=== PATIENT | female | born 1940 | race Caucasian/White ===

== ENCOUNTER → 2016-08-12 | Outpatient (CLI) | payer MEDICARE, BC ==
[2016-08-12 07:32] LABS: ABSOLUTE BASOPHILS # (AUTO) 0.1 10^3/uL (0.0-0.2); ABSOLUTE EOSINOPHILS # (AUTO) 0.2 10^3/uL (0.0-0.6); ABSOLUTE LYMPHOCYTES (AUTO) 1.7 10^3/uL (0.5-4.7); ABSOLUTE MONOCYTES (AUTO) 0.4 10^3/uL (0.1-1.4); ABSOLUTE NEUT (AUTO) 3.4 10^3/uL (1.7-8.2); BASOPHILS % (AUTO) 1.1 % (0-2); EOSINOPHILS % (AUTO) 4.1 % (0-6); HEMATOCRIT 40.2 % (36.0-47.0); HEMOGLOBIN 13.5 g/dL (12.0-15.5); HGB HCT DIFFERENCE 0.3; LYMPHOCYTES % (AUTO) 28.9 % (13-45); MEAN CORPUSCULAR HGB CONC 33.7 g/dL (32.0-36.0); MEAN CORPUSCULAR VOLUME 86 fl (80-97); MONOCYTES % (AUTO) 6.3 % (3-13); RED BLOOD COUNT 4.67 10^6/uL (3.72-5.28); RED CELL DISTRIBUTION WIDTH 14.3 % (11.5-14.0); SEGMENTED NEUTROPHILS % (AUTO) 59.6 % (42-78); WHITE BLOOD COUNT 5.7 10^3/uL (4.0-10.5)
[2016-08-12 07:52] LABS: ALANINE AMINOTRANSFERASE 27 U/L (9-52); ALBUMIN 4.4 g/dL (3.5-5.0); ALKALINE PHOSPHATASE 69 U/L (38-126); ANION GAP 12 (5-19); ASPARTATE AMINO TRANSFERASE 21 U/L (14-36); BILIRUBIN,TOTAL 0.7 mg/dL (0.2-1.3); BLOOD UREA NITROGEN 18 mg/dL (7-20); CALCIUM 10.4 mg/dL (8.4-10.2); CARBON DIOXIDE 27 mmol/L (22-30); CHLORIDE 104 mmol/L (98-107); CHOLESTEROL 140.25 mg/dL (0-200); CREATININE RESULT 1.23 mg/dL (0.52-1.25); Direct HDL 51 mg/dL (>40); GLUCOSE 128 mg/dL (75-110); POTASSIUM 4.8 mmol/L (3.6-5.0); SODIUM 143.4 mmol/L (137-145); TOTAL PROTEIN 7.3 g/dL (6.3-8.2); TRIGLYCERIDES 254 mg/dL (<150)
[2016-08-12 08:04] LABS: DIRECT LDL 51 mg/dL (<100)
[2016-08-12 08:09] LABS: VLDL CHOLESTEROL 50.8 mg/dL (10-31)
== END ==
LOC: LAB 07:09
PROVIDERS: ATTEND Internal Medicine
DX: N20.0 Calculus of kidney (principal); R31.9 Hematuria, unspecified; E11.9 Type 2 diabetes mellitus without complications; I25.10 Atherosclerotic heart disease of native coronary artery without angina pectoris; I10 Essential (primary) hypertension; R53.83 Other fatigue; E78.5 Hyperlipidemia, unspecified
CPT/HCPCS: 36415; 74176; 80053; 80061; 83036; 84443; 85025

== ENCOUNTER → 2016-08-28 | Outpatient (CLI) | payer MEDICARE, BC | LOC: RAD 08:40 | PROVIDERS: ATTEND Urology | DX: R31.0 Gross hematuria (principal) | CPT/HCPCS: 74178 ==

== ENCOUNTER 2016-12-26 05:11 | Day surgery (SDC) | payer MEDICARE, BC ==
[2016-12-24 12:09] LABS: HEMATOCRIT 39.5 % (36.0-47.0); HGB HCT DIFFERENCE -0.5; MEAN CORPUSCULAR HEMOGLOBIN 28.8 pg (27.0-33.4); MEAN CORPUSCULAR VOLUME 87 fl (80-97); RED BLOOD COUNT 4.52 10^6/uL (3.72-5.28); RED CELL DISTRIBUTION WIDTH 14.7 % (11.5-14.0); WHITE BLOOD COUNT 7.2 10^3/uL (4.0-10.5)
[2016-12-24 12:28] LABS: ANION GAP 12 (5-19); BLOOD UREA NITROGEN 22 mg/dL (7-20); CALCIUM 10.2 mg/dL (8.4-10.2); CARBON DIOXIDE 26 mmol/L (22-30); CHLORIDE 103 mmol/L (98-107); CREATININE RESULT 1.12 mg/dL (0.52-1.25); GLUCOSE 161 mg/dL (75-110); POTASSIUM 4.7 mmol/L (3.6-5.0); SODIUM 140.7 mmol/L (137-145)
[2016-12-24 12:51] LABS: APPEARANCE,URINE SLIGHTLY-CLOUDY; BILIRUBIN,URINE NEGATIVE (NEGATIVE); GLUCOSE, URINE NEGATIVE (NEGATIVE); KETONES,URINE NEGATIVE (NEGATIVE); LEUKOCYTE ESTERASE,URINE TRACE (NEGATIVE); NITRITE,URINE NEGATIVE (NEGATIVE); PROTEIN,URINE 30 mg/dL (NEGATIVE); URINE SPECIFIC GRAVITY 1.018; UROBILINOGEN,URINE NEGATIVE mg/dL (<2.0)
--- NOTE | 2016-12-24 13:21 | RADIOLOGY REPORT (SQ) ---
EXAM DESCRIPTION: CHEST PA/LATERAL COMPLETED DATE/TIME: 12/24/2016 12:07 pm REASON FOR STUDY: PRE OP COMPARISON: 03/28/2015 EXAM PARAMETERS: NUMBER OF VIEWS: two views TECHNIQUE: Digital Frontal and Lateral radiographic views of the chest acquired. RADIATION DOSE: NA LIMITATIONS: none FINDINGS: LUNGS AND PLEURA: No opacities, masses or pneumothorax. No pleural effusion. MEDIASTINUM AND HILAR STRUCTURES: No masses or contour abnormalities. HEART AND VASCULAR STRUCTURES: Heart normal size. No evidence for failure. BONES: Bridging osteophytes are present in the thoracic spine. HARDWARE: None in the chest. OTHER: No other significant finding. IMPRESSION: Thoracic spondylosis with no acute cardiopulmonary disease. TECHNICAL DOCUMENTATION: JOB ID: [id number] [employer]- All Rights Reserved
--- NOTE | 2016-12-24 17:04 | EKG REPORT ---
SEVERITY:- ABNORMAL ECG - SINUS RHYTHM NONSPECIFIC T ABNORMALITIES, LATERAL LEADS : Confirmed by: Jacki Vann MD 24-Dec-2016 17:03:25
[~2016-12-26 05:11] MED LIST: CEFAZOLIN 1 GM/D5W RTU 1 GM/50 ML RTUPB IV PRN; LACTATED RINGERS 1000 ML IV PRN; LIDOCAINE 0.5% INJ-PF (5 MG/ML) 50 ML SDV SUBCUT PRN
[2016-12-26] MEDS ORDERED: MIDAZOLAM 2 MG/2 ML INJ ONE (07:00)
[2016-12-26] MEDS ORDERED: FENTANYL CITRATE INJ/PF 100 MCG/2 ML AMPUL ONE (07:00)
[2016-12-26] MEDS ORDERED: PROPOFOL INJ 200 MG/20 ML VIAL IV ONE (07:01)
[2016-12-26] MEDS ORDERED: LIDOCAINE 2% INJ-PF (100 MG/5 ML) SYRINGE ONE (07:02)
[2016-12-26] MEDS ORDERED: LIDOCAINE 1% INJ-PF (10 MG/ML) 30 ML SDV ONE (07:29)
[2016-12-26] MEDS ORDERED: PROMETHAZINE HCL INJ 25 MG/1 ML VIAL IV PRN (07:48)
[2016-12-26] MEDS ORDERED: DIPHENHYDRAMINE HCL 50 MG/ML VIAL IV PRN (07:48)
[2016-12-26] MEDS ORDERED: FENTANYL CITRATE INJ/PF 100 MCG/2 ML AMPUL IV PRN ×2 (07:48)
[2016-12-26] MEDS ORDERED: MEPERIDINE HCL/PF INJ 25 MG/1 ML DISP.SYRIN IV PRN (07:48)
--- NOTE | 2016-12-26 08:13 | OPERATIVE REPORT E ---
Operative Report NAME: FRANCY HOLGUIN : 1940 AGE: 76Y DATE OF SURGERY: ROOM: PREOPERATIVE DIAGNOSIS: Post menopausal bleeding. POSTOPERATIVE DIAGNOSES: 1. Post menopausal bleeding. 2. Endometrial polyp. PROCEDURE: Hysteroscopic resection endometrial polyp via operative hysteroscopy. SURGEON: RENEA VERDUGO M.D. COMPLICATIONS: None. ANESTHESIA: LMA and local. FINDINGS: Approximately a 1.5 cm endometrial polyp with a small stalk present. It was removed in toto. INDICATIONS FOR PROCEDURE: The patient had postmenopausal bleeding unresponsive to the usual assessment as an outpatient. It was elected to proceed to operative hysteroscopy for proper assessment of the cervix and uterus. The usual risks of bleeding and infection, anesthesia, damage to organs and tissues had been discussed with the patient and understood. PROCEDURE: The patient was taken to the operating room and placed in the modified lithotomy position under adequate anesthesia. After adequate anesthesia ascertained, prepped and draped in the usual manner for an operative hysteroscopy. Paracervical block was placed without difficulty after a surgical time-out was performed. The bladder was left undrained. EUA performed. No adnexal masses were appreciated. The cervix was dilated to admit an operative hysteroscope after infiltration of the area with approximately 8 mL of 1% plain lidocaine. An endometrial polyp was encountered, MyoSure was deployed, and the polyp was removed in toto under direct visualization. At complete of procedure bleeding was nil. The patient was awakened and taken to the recovery room in stable condition. DICTATING PHYSICIAN: RENEA VERDUGO M.D. [id number] Y#: [id number] ID: [id number] JOB#: [id number] ACCT: [id number] cc:RENEA VERDUGO M.D. >
[2016-12-26] MEDS ORDERED: RINGERS SOLUTION,LACTATED 1,000 ML IV PRN (08:30)
[2016-12-26] MEDS ORDERED: OXYCODONE-ACETAMINOPHEN 5-325 MG TABLET PO PRN (09:00)
[2016-12-26] MEDS ORDERED: MORPHINE INJ 4 MG DOSE (EDIT ROUTE) INJ PRN (09:00)
[2016-12-26 09:54] VITALS: BP 173/63
[2016-12-26] MEDS ORDERED: IBUPROFEN 800 MG TABLET PO SCH (10:00)
== END 2016-12-26 09:55 | disposition home or self-care (01) ==
LOC: OROUT 05:11
PROVIDERS: ATTEND Specialist
PROC: 0UB98ZX Excision of Uterus, Via Natural or Artificial Opening Endoscopic, Diagnostic (ICD-10-PCS; principal; 2016-12-26 07:15)
DX: C54.1 Malignant neoplasm of endometrium (principal); N95.0 Postmenopausal bleeding; E11.9 Type 2 diabetes mellitus without complications; I10 Essential (primary) hypertension; E78.00 Pure hypercholesterolemia, unspecified; R06.00 Dyspnea, unspecified; Z86.73 Personal history of transient ischemic attack (TIA), and cerebral infarction without residual deficits; Z79.899 Other long term (current) drug therapy; Z79.4 Long term (current) use of insulin; Z79.84 Long term (current) use of oral hypoglycemic drugs; Z79.82 Long term (current) use of aspirin
CPT/HCPCS: 93005; 86900; 86901; 36415; 86850; 82962; 85027; 80048; 81001; 88305 ×2; 71020; 93010; 58558; J2250; J0690; J3010; J3490; J2001; J2704; 952

== ENCOUNTER 2017-10-06 09:31 | Observation (INO) | payer MEDICARE, BC ==
[2017-10-06] MEDS ORDERED: ASPIRIN 81 MG TABLET, CHEWABLE PO ONE (09:36)
--- NOTE | 2017-10-06 09:46 | ER Document Report ---
ED General - General Stated Complaint: GENERALIZED WEAKNESS Time Seen by Provider: 10/06/17 09:36 Mode of Arrival: Medic Information source: Patient, Relative, Law Enforcement Notes: 76-year-old female history of dementia presents from home with concerns for generalized weakness and chills. Patient denies any fevers denies any pain anywhere it is noted patient had fall but denies any pain from the fall TRAVEL OUTSIDE OF THE [place] IN LAST 30 DAYS: No - HPI Onset: Just prior to arrival Onset/Duration: Sudden Quality of pain: No pain Severity: Mild Pain Level: Denies Associated symptoms: Chills Exacerbated by: Denies Relieved by: Denies Similar symptoms previously: No Recently seen / treated by doctor: No - Related Data Allergies/Adverse Reactions: codeine [Codeine] Allergy (Verified 09/17/14 19:49) Past Medical History - Social History Smoking Status: Never Smoker Cigarette use (# per day): No Chew tobacco use (# tins/day): No Smoking Education Provided: No Family History: Reviewed & Not Pertinent - Past Medical History Cardiac Medical History: Reports: Hx Heart Attack - 2014, Hx Hypercholesterolemia, Hx Hypertension, Hx Peripheral Vascular Disease Denies: Hx Coronary Artery Disease Pulmonary Medical History: Denies: Hx Asthma, Hx Bronchitis, Hx COPD, Hx Pneumonia, Hx Tuberculosis Neurological Medical History: Denies: Hx Cerebrovascular Accident, Hx Seizures Endocrine Medical History: Reports: Hx Diabetes Mellitus Type 2 GI Medical History: Denies: Hx Hepatitis, Hx Hiatal Hernia, Hx Ulcer Musculoskeltal Medical History: Denies Hx Arthritis Infectious Medical History: Denies: Hx Hepatitis Past Surgical History: Reports: Hx Cardiac Surgery - stents. Denies: Hx Mastectomy, Hx Open Heart Surgery, Hx Pacemaker - Immunizations Hx Diphtheria, Pertussis, Tetanus Vaccination: Yes Hx Pneumococcal Vaccination: 04/05/16 Review of Systems - Review of Systems Notes: REVIEW OF SYSTEMS: CONSTITUTIONAL : Admits to chills EENT: Denies eye, ear, throat, or mouth pain or symptoms. Denies nasal or sinus congestion or discharge. Denies throat, tongue, or mouth swelling or difficulty swallowing. CARDIOVASCULAR: Denies chest pain. Denies palpitations or racing or irregular heart beat. Denies ankle edema. RESPIRATORY: Denies cough, cold, or chest congestion. Denies shortness of breath, difficulty breathing, or wheezing. GASTROINTESTINAL: Denies abdominal pain or distention. Denies nausea, vomiting , or diarrhea. Denies blood in vomitus, stools, or per rectum. Denies black, tarry stools. Denies constipation. GENITOURINARY: Denies difficulty urinating, painful urination, burning, frequency, blood in urine, or discharge. FEMALE GENITOURINARY: Denies vaginal bleeding, heavy or abnormal periods, irregular periods. Denies vaginal discharge or odor. MUSCULOSKELETAL: Denies back or neck pain or stiffness. Denies joint pain or swelling. SKIN: Denies rash, lesions or sores. HEMATOLOGIC : Denies easy bruising or bleeding. LYMPHATIC: Denies swollen, enlarged glands. NEUROLOGICAL: Denies confusion or altered mental status. Denies passing out or loss of consciousness. Denies dizziness or lightheadedness. Denies headache. Denies weakness or paralysis or loss of use of either side. Denies problems with gait or speech. Denies sensory loss, numbness, or tingling. Denies seizures. PSYCHIATRIC: Denies anxiety or stress. Denies depression, suicidal ideation, or homicidal ideation. ALL OTHER SYSTEMS REVIEWED AND NEGATIVE. PHYSICAL EXAMINATION: GENERAL: Elderly female tremoring HEAD: Atraumatic, normocephalic. EYES: Pupils equal round and reactive to light, extraocular movements intact, conjunctiva are normal. ENT: Nares patent, oropharynx clear without exudates. Moist mucous membranes. NECK: Normal range of motion, supple without lymphadenopathy LUNGS: Breath sounds clear to auscultation bilaterally and equal. No wheezes rales or rhonchi. HEART: Regular rate and rhythm without murmurs ABDOMEN: Soft, nontender, nondistended abdomen. No guarding, no rebound. No masses appreciated. Female : deferred Musculoskeletal: Normal range of motion, no pitting or edema. No cyanosis. NEUROLOGICAL: Cranial nerves grossly intact. Normal speech, normal gait. Normal sensory, motor exams PSYCH: Normal mood, normal affect. SKIN: Warm, Dry, normal turgor, no rashes or lesions noted. Dictation was performed using [employer] voice recognition software Physical Exam - Vital signs Vitals: Temp Pulse Resp BP Pulse Ox 97.3 F 103 H 28 H 169/81 H 99 10/06/17 09:37 10/06/17 09:37 10/06/17 09:37 10/06/17 09:37 10/06/17 09:37 Course - Re-evaluation Re-evalutation: 10/06/17 09:45 Patient has probable infectious process associated with the chills and generalized weakness that she is having, urinalysis x-ray lab work are pending 10/06/17 13:19 Patient is noted to have elevated lactic acid, she is on metformin, and acute renal insufficiency is noted as well. I do believe patient's symptoms are secondary to dehydration, no obvious infectious process is noted, patient will be admitted to the hospitalist service - Vital Signs Vital signs: Temp Pulse Resp BP Pulse Ox 97.3 F 103 H 16 176/90 H 99 10/06/17 09:37 10/06/17 09:37 10/06/17 12:00 10/06/17 12:00 10/06/17 12:00 - Laboratory Result Diagrams: 10/06/17 10:00 10/06/17 10:00 Laboratory results interpreted by me: 10/06/17 10/06/17 10/06/17 10:00 10:00 10:01 BUN 25 H Creatinine 1.59 H Est GFR ( Amer) 38 L Est GFR (Non-Af Amer) 31 L Glucose 140 H POC Glucose 123 H Lactic Acid 3.5 H Calcium 10.7 H Creatine Kinase 246 H Urine Protein Urine Glucose (UA) Urine Blood 10/06/17 10:15 BUN Creatinine Est GFR ( Amer) Est GFR (Non-Af Amer) Glucose POC Glucose Lactic Acid Calcium Creatine Kinase Urine Protein 100 H Urine Glucose (UA) 150 H Urine Blood SMALL H - Diagnostic Test Radiology reviewed: Image reviewed - no acute abnormality , report given to patient, Reports reviewed - EKG Interpretation by Me EKG shows normal: Sinus rhythm, [place], Intervals, QRS Complexes Discharge - Discharge Clinical Impression: Lactic acid acidosis Acute renal failure (ARF) Qualifiers: Acute renal failure type: unspecified Qualified Code(s): N17.9 - Acute kidney failure, unspecified Condition: Stable Disposition: ADMITTED OBSERVATION Admitting Provider: Hospitalist Unit Admitted: Telemetry
--- NOTE | 2017-10-06 09:58 | RADIOLOGY REPORT (SQ) ---
EXAM DESCRIPTION: CHEST SINGLE VIEW COMPLETED DATE/TIME: 10/06/2017 9:50 am REASON FOR STUDY: weakness COMPARISON: Chest films 12/24/2016, 03/28/2015 EXAM PARAMETERS: NUMBER OF VIEWS: One view. TECHNIQUE: Single frontal radiographic view of the chest acquired. RADIATION DOSE: NA LIMITATIONS: None. FINDINGS: LUNGS AND PLEURA: No opacities, masses or pneumothorax. No pleural effusion. MEDIASTINUM AND HILAR STRUCTURES: No masses. Contour normal. HEART AND VASCULAR STRUCTURES: Heart normal in size. Normal vasculature. BONES: Diffuse thoracic spondylotic change. HARDWARE: None in the chest. OTHER: No other significant finding. IMPRESSION: NO ACUTE RADIOGRAPHIC FINDING IN THE CHEST. TECHNICAL DOCUMENTATION: JOB ID: [id number] [employer]- All Rights Reserved Reading location - IP/workstation name: [email or web address]
[2017-10-06 10:23] LABS: ABSOLUTE BASOPHILS # (AUTO) 0.1 10^3/uL (0.0-0.2); ABSOLUTE EOSINOPHILS # (AUTO) 0.1 10^3/uL (0.0-0.6); ABSOLUTE LYMPHOCYTES (AUTO) 1.9 10^3/uL (0.5-4.7); ABSOLUTE MONOCYTES (AUTO) 0.6 10^3/uL (0.1-1.4); ABSOLUTE NEUT (AUTO) 4.6 10^3/uL (1.7-8.2); BASOPHILS % (AUTO) 0.8 % (0-2); EOSINOPHILS % (AUTO) 1.3 % (0-6); HEMOGLOBIN 13.9 g/dL (12.0-15.5); LYMPHOCYTES % (AUTO) 26.6 % (13-45); MEAN CORPUSCULAR HEMOGLOBIN 29.9 pg (27.0-33.4); MEAN CORPUSCULAR HGB CONC 34.8 g/dL (32.0-36.0); MEAN CORPUSCULAR VOLUME 86 fl (80-97); MONOCYTES % (AUTO) 8.1 % (3-13); PLATELET COUNT 250 10^3/uL (150-450); RED BLOOD COUNT 4.64 10^6/uL (3.72-5.28); RED CELL DISTRIBUTION WIDTH 13.8 % (11.5-14.0); SEGMENTED NEUTROPHILS % (AUTO) 63.2 % (42-78); TOTAL CELLS COUNTED % (AUTO) 100 %; WHITE BLOOD COUNT 7.2 10^3/uL (4.0-10.5)
[2017-10-06 10:34] LABS: APPEARANCE,URINE CLEAR; BILIRUBIN,URINE NEGATIVE (NEGATIVE); COLOR,URINE YELLOW; GLUCOSE, URINE 150 mg/dL (NEGATIVE); KETONES,URINE NEGATIVE (NEGATIVE); LEUKOCYTE ESTERASE,URINE NEGATIVE (NEGATIVE); NITRITE,URINE NEGATIVE (NEGATIVE); PROTEIN,URINE 100 mg/dL (NEGATIVE); URINE SPECIFIC GRAVITY 1.018; UROBILINOGEN,URINE NEGATIVE mg/dL (<2.0)
[2017-10-06 10:46] LABS: ALANINE AMINOTRANSFERASE 20 U/L (9-52); ALBUMIN 4.6 g/dL (3.5-5.0); ALKALINE PHOSPHATASE 81 U/L (38-126); ANION GAP 17 (5-19); ASPARTATE AMINO TRANSFERASE 25 U/L (14-36); BILIRUBIN,DIRECT 0.1 mg/dL (0.0-0.4); BILIRUBIN,TOTAL 0.5 mg/dL (0.2-1.3); BLOOD UREA NITROGEN 25 mg/dL (7-20); CALCIUM 10.7 mg/dL (8.4-10.2); CARBON DIOXIDE 24 mmol/L (22-30); CHLORIDE 103 mmol/L (98-107); CREATINE KINASE 246 U/L (30-135); GLUCOSE 140 mg/dL (75-110); POTASSIUM 3.8 mmol/L (3.6-5.0); SODIUM 144.4 mmol/L (137-145); TOTAL PROTEIN 7.3 g/dL (6.3-8.2)
--- NOTE | 2017-10-06 10:46 | EKG REPORT ---
SEVERITY:- ABNORMAL ECG - ECTOPIC ATRIAL RHYTHM BORDERLINE LEFT AXIS DEVIATION NONSPECIFIC REPOL ABNORMALITY, DIFFUSE LEADS : Confirmed by: Lalitha Azevedo 06-Oct-2017 10:45:19
[2017-10-06 10:56] LABS: CREATINE KINASE MB 3.99 ng/mL (<4.55)
[2017-10-06 11:02] LABS: TROPONIN I 0.051 ng/mL
[2017-10-06] MEDS ORDERED: NORMAL SALINE 500 ML IV ONE (11:27)
[2017-10-06] MEDS ORDERED: NORMAL SALINE 1000 ML 1,000 ML IV ONE (11:27)
[2017-10-06] MEDS ORDERED: HYDRALAZINE HCL INJ/PF 20 MG/1 ML SDV IV ONE (13:27)
[2017-10-06] MEDS ORDERED: 1/2 NORMAL SALINE 1,000 ML IV PRN (14:14)
[2017-10-06] MEDS ORDERED: ONDANSETRON HCL INJ/PF 4 MG/2 ML SDV IV PRN (14:14)
[2017-10-06] MEDS ORDERED: ACETAMINOPHEN 325 MG TABLET PO PRN (14:14)
--- NOTE | 2017-10-06 14:40 | PDOC H&P ---
History of Present Illness Admission Date/PCP: 10/06/17 12:27 GRACIE ORDRIGEZ, Patient complains of: Patient presents to the emergency room today with complaints of generalized weakness and chills. She apparently fell. History of Present Illness: FRANCY HOLGUIN is a 76 year old female Patient presents to the emergency room today with complaints of generalized weakness and chills. She apparently fell. She denies any pain including chest pain. There is no nausea vomiting or any history of seizure activity. She was noted to have a somewhat elevated lactic acid which has not been attributed to metformin. Patient is likely dehydrated as there is no obvious source of infection identified. Past Medical History Cardiac Medical History: Reports: Myocardial Infarction - 2015, Hyperlipidema, Hypertension, Peripheral Vascular Disease Denies: Coronary Artery Disease Pulmonary Medical History: Denies: Asthma, Bronchitis, Chronic Obstructive Pulmonary Disease (COPD), Pneumonia, Tuberculosis Neurological Medical History: Denies: Seizures Endocrine Medical History: Reports: Diabetes Mellitus Type 2 GI Medical History: Denies: Hepatitis, Hiatal Hernia Musculoskeltal Medical History: Denies: Arthritis Hematology: Denies: Anemia, Sickle Cell Disease Past Surgical History Past Surgical History: Denies: Amputation, Mastectomy, Pacemaker Social History Information Source: Relative Smoking Status: Never Smoker Frequency of Alcohol Use: None Hx Recreational Drug Use: No Hx Prescription Drug Abuse: No - Advance Directive Resuscitation Status: Full Code Family History Family History: Reviewed & Not Pertinent Parental Family History Reviewed: No - Not applicable Children Family History Reviewed: Unknown Sibling(s) Family History Reviewed.: Unknown Medication/Allergy Home Medications: Aspirin [Aspirin EC] 81 mg PO DAILY 10/06/17 Clonidine HCl [Catapres 0.1 mg Tablet] 0.1 mg PO DAILY 10/06/17 Donepezil HCl [Aricept 5 mg Tablet] 5 mg PO Q12 10/06/17 Glimepiride [Amaryl 4 mg Tablet] 4 mg PO BID 10/06/17 Hydrochlorothiazide [Hydrodiuril 25 mg Tablet] 25 mg PO QAM 10/06/17 Insulin Glargine,Hum.rec.anlog [Lantus Solostar] 28 unit SQ QHS 10/06/17 Insulin Lispro [Humalog Insulin 100 Unit/1 ml 3 ml Vial] 0 unit SUBCUT .SLD SCALE 10/06/17 Lisinopril [Prinivil 10 mg Tablet] 20 mg PO DAILY 10/06/17 Melatonin [Melatonin 5 mg Tablet] 10 mg PO QHS 10/06/17 Metformin HCl [Metformin HCl ER] 1,500 mg PO QPM 10/06/17 Rosuvastatin Calcium [Crestor 20 mg Tablet] 20 mg PO QHS 10/06/17 Ticagrelor [Brilinta 90 mg Tablet] 90 mg PO BID 10/06/17 Allergies/Adverse Reactions: codeine [Codeine] Allergy (Verified 09/17/14 19:49) Review of Systems All systems: reviewed and no additional remarkable complaints except as stated Cardiovascular: ABSENT: chest pain, dyspnea on exertion Physical Exam Vital Signs: Temp Pulse Resp BP Pulse Ox 97.3 F 103 H 24 H 164/70 H 98 10/06/17 09:37 10/06/17 09:37 10/06/17 14:01 10/06/17 14:01 10/06/17 14:01 General appearance: PRESENT: no acute distress, well-developed, well-nourished Eye exam: PRESENT: conjunctiva pink, EOMI, PERRLA. ABSENT: scleral icterus Neck exam: ABSENT: carotid bruit, JVD, lymphadenopathy, thyromegaly Respiratory exam: PRESENT: clear to auscultation jannet. ABSENT: rales, rhonchi, wheezes Cardiovascular exam: PRESENT: RRR. ABSENT: diastolic murmur, rubs, systolic murmur Pulses: PRESENT: normal dorsalis pedis pul GI/Abdominal exam: PRESENT: normal bowel sounds, soft. ABSENT: distended, guarding, mass, organolmegaly, rebound, tenderness Rectal exam: PRESENT: deferred Extremities exam: PRESENT: full ROM. ABSENT: calf tenderness, clubbing, pedal edema Musculoskeletal exam: PRESENT: ambulatory Neurological exam: PRESENT: alert, awake, oriented to person, oriented to time, oriented to situation Psychiatric exam: PRESENT: appropriate affect, normal mood. ABSENT: homicidal ideation, suicidal ideation Skin exam: PRESENT: dry, intact, warm. ABSENT: cyanosis, rash Results Laboratory Results: 10/06/17 14:00 Lactic Acid 1.0 Laboratory 10/06/17 10/06/17 10/06/17 10:00 10:00 10:00 WBC 7.2 RBC 4.64 Hgb 13.9 Hct 40.0 MCV 86 MCH 29.9 MCHC 34.8 RDW 13.8 Plt Count 250 Seg Neutrophils % 63.2 Lymphocytes % 26.6 Monocytes % 8.1 Eosinophils % 1.3 Basophils % 0.8 Absolute Neutrophils 4.6 Absolute Lymphocytes 1.9 Absolute Monocytes 0.6 Absolute Eosinophils 0.1 Absolute Basophils 0.1 Sodium 144.4 Potassium 3.8 Chloride 103 Carbon Dioxide 24 Anion Gap 17 BUN 25 H Creatinine 1.59 H Est GFR ( Amer) 38 L Est GFR (Non-Af Amer) 31 L Glucose 140 H POC Glucose Lactic Acid Calcium 10.7 H Total Bilirubin 0.5 Direct Bilirubin 0.1 Neonat Total Bilirubin Not Reportable Neonat Direct Bilirubin Not Reportable Neonat Indirect Bili Not Reportable AST 25 ALT 20 Alkaline Phosphatase 81 Creatine Kinase 246 H CK-MB (CK-2) 3.99 Troponin I 0.051 Total Protein 7.3 Albumin 4.6 Urine Color Urine Appearance Urine pH Ur Specific [place] Urine Protein Urine Glucose (UA) Urine Ketones Urine Blood Urine Nitrite Urine Bilirubin Urine Urobilinogen Ur Leukocyte Esterase Urine WBC (Auto) Urine RBC (Auto) Squamous Epi Cells Auto Urine Mucus (Auto) Urine Ascorbic Acid 10/06/17 10/06/17 10/06/17 10:00 10:01 10:15 WBC RBC Hgb Hct MCV MCH MCHC RDW Plt Count Seg Neutrophils % Lymphocytes % Monocytes % Eosinophils % Basophils % Absolute Neutrophils Absolute Lymphocytes Absolute Monocytes Absolute Eosinophils Absolute Basophils Sodium Potassium Chloride Carbon Dioxide Anion Gap BUN Creatinine Est GFR ( Amer) Est GFR (Non-Af Amer) Glucose POC Glucose 123 H Lactic Acid 3.5 H Calcium Total Bilirubin Direct Bilirubin Neonat Total Bilirubin Neonat Direct Bilirubin Neonat Indirect Bili AST ALT Alkaline Phosphatase Creatine Kinase CK-MB (CK-2) Troponin I Total Protein Albumin Urine Color YELLOW Urine Appearance CLEAR Urine pH 6.0 Ur Specific [place] 1.018 Urine Protein 100 H Urine Glucose (UA) 150 H Urine Ketones NEGATIVE Urine Blood SMALL H Urine Nitrite NEGATIVE Urine Bilirubin NEGATIVE Urine Urobilinogen NEGATIVE Ur Leukocyte Esterase NEGATIVE Urine WBC (Auto) 0 Urine RBC (Auto) 0 Squamous Epi Cells Auto <1 Urine Mucus (Auto) RARE Urine Ascorbic Acid NEGATIVE 10/06/17 10/06/17 10/06/17 14:00 14:00 15:34 WBC RBC Hgb Hct MCV MCH MCHC RDW Plt Count Seg Neutrophils % Lymphocytes % Monocytes % Eosinophils % Basophils % Absolute Neutrophils Absolute Lymphocytes Absolute Monocytes Absolute Eosinophils Absolute Basophils Sodium Potassium Chloride Carbon Dioxide Anion Gap BUN Creatinine Est GFR ( Amer) Est GFR (Non-Af Amer) Glucose POC Glucose 129 H Lactic Acid 1.0 Calcium Total Bilirubin Direct Bilirubin Neonat Total Bilirubin Neonat Direct Bilirubin Neonat Indirect Bili AST ALT Alkaline Phosphatase Creatine Kinase CK-MB (CK-2) Troponin I 0.052 Total Protein Albumin Urine Color Urine Appearance Urine pH Ur Specific [place] Urine Protein Urine Glucose (UA) Urine Ketones Urine Blood Urine Nitrite Urine Bilirubin Urine Urobilinogen Ur Leukocyte Esterase Urine WBC (Auto) Urine RBC (Auto) Squamous Epi Cells Auto Urine Mucus (Auto) Urine Ascorbic Acid EKG Comments: Ectopic atrial rhythm Impressions: Chest X-Ray 10/06/17 09:37 IMPRESSION: NO ACUTE RADIOGRAPHIC FINDING IN THE CHEST. Assessment & Plan - Diagnosis (1) Acute renal failure (ARF) Qualifiers: Acute renal failure type: unspecified Qualified Code(s): N17.9 - Acute kidney failure, unspecified Is this a current diagnosis for this admission?: Yes Plan: Secondary to dehydration. Will rehydrate and recheck BMP in a.m. (2) Lactic acid acidosis Is this a current diagnosis for this admission?: Yes Plan: Possibly from metformin. This will be rechecked (3) Diabetes mellitus Qualifiers: Diabetes mellitus type: type 2 Is this a current diagnosis for this admission?: Yes Plan: Controlled. Will place on sliding scale insulin - Time Time Spent: 30 to 50 Minutes Medications reviewed and adjusted accordingly: Yes Anticipated discharge: Home Within: within 24 hours - Inpatient Certification Based on my medical assessment, after consideration of the patient's comorbidities, presenting symptoms, or acuity I expect that the services needed warrant INPATIENT care.: Yes Medical Necessity: Need For IV Fluids
[2017-10-06] MEDS ORDERED: ENOXAPARIN SODIUM INJ 30 MG/0.3 ML DISP.SYRIN SUBCUT ONE (16:00)
[2017-10-06] MEDS: HYDRALAZINE HCL INJ/PF 20 MG/1 ML SDV IV PRN (18:47)
[2017-10-07 06:59] LABS: HEMATOCRIT 36.7 % (36.0-47.0); HEMOGLOBIN 12.5 g/dL (12.0-15.5); MEAN CORPUSCULAR HEMOGLOBIN 29.4 pg (27.0-33.4); MEAN CORPUSCULAR HGB CONC 33.9 g/dL (32.0-36.0); MEAN CORPUSCULAR VOLUME 87 fl (80-97); PLATELET COUNT 208 10^3/uL (150-450); RED BLOOD COUNT 4.24 10^6/uL (3.72-5.28); RED CELL DISTRIBUTION WIDTH 13.8 % (11.5-14.0); WHITE BLOOD COUNT 7.2 10^3/uL (4.0-10.5)
[2017-10-07 07:12] LABS: ANION GAP 13 (5-19); BLOOD UREA NITROGEN 21 mg/dL (7-20); CALCIUM 9.8 mg/dL (8.4-10.2); CARBON DIOXIDE 21 mmol/L (22-30); CHLORIDE 107 mmol/L (98-107); GLUCOSE 198 mg/dL (75-110); SODIUM 141.2 mmol/L (137-145)
[2017-10-07] MEDS: HYDRALAZINE HCL INJ/PF 20 MG/1 ML SDV IV PRN (08:19)
[2017-10-07] MEDS ORDERED: ENOXAPARIN SODIUM INJ 30 MG/0.3 ML DISP.SYRIN SUBCUT SCH (10:00)
[2017-10-07] MEDS ORDERED: DOCUSATE SODIUM 100 MG CAPSULE PO SCH (10:00)
[2017-10-07] MEDS ORDERED: ENOXAPARIN SODIUM INJ 40 MG/0.4 ML DISP.SYRIN SUBCUT SCH (10:00)
[2017-10-07] MEDS ORDERED: CLONIDINE HCL 0.1 MG TABLET PO ONE (11:30)
[2017-10-07] MEDS ORDERED: ASPIRIN 81 MG TABLET, ENT COATED PO ONE (11:30)
[2017-10-07] MEDS ORDERED: DONEPEZIL HCL 5 MG TABLET PO ONE (11:30)
[2017-10-07] MEDS ORDERED: TICAGRELOR 90 MG TABLET PO ONE (12:00)
[2017-10-07] MEDS ORDERED: HYDROCHLOROTHIAZIDE 25 MG TABLET PO ONE (12:00)
[2017-10-07] MEDS ORDERED: LISINOPRIL 10 MG TABLET PO SCH (12:00)
[2017-10-07] MEDS ORDERED: GLIMEPIRIDE 4 MG TABLET PO ONE (12:00)
[2017-10-07] MEDS ORDERED: INSULIN GLARGINE,HUM.REC.ANLOG 1,000 UNIT/10 ML UNIT SUBCUT ONE (12:30)
[2017-10-07] MEDS ORDERED: INSULIN LISPRO 100 UNIT/ML 3 ML VIAL SUBCUT ONE (12:30)
--- NOTE | 2017-10-07 13:10 | RADIOLOGY REPORT (SQ) ---
EXAM DESCRIPTION: CT HEAD WITHOUT COMPLETED DATE/TIME: 10/07/2017 12:15 pm REASON FOR STUDY: Confusion, s/p fall I16.0 HYPERTENSIVE URGENCY G47.51 CONFUSIONAL AROUSALS COMPARISON: 12/17/2015 TECHNIQUE: Axial images acquired through the brain without intravenous contrast. Images reviewed wi th bone, brain and subdural windows. Additional sagittal and coronal reconstructions were generated. Images stored on PACS. All CT scanners at this facility use dose modulation, iterative reconstruction, and/or weight based d osing when appropriate to reduce radiation dose to as low as reasonably achievable (ALARA). [facility]: Dose Right [facility]: CareDose [facility]: Dose Right [facility]: Teradose 4D [facility]: Smart CannaBuild RADIATION DOSE: CT Rad equipment meets quality standard of care and radiation dose reduction techniq ues were employed. CTDIvol: 48.5 mGy. DLP: 855 mGy-cm. mGy. LIMITATIONS: None. FINDINGS: VENTRICLES: Normal size and contour. CEREBRUM: No masses. No hemorrhage. No acute infarction. There is an old lacunar infarct in the in sula on the left. Few scattered areas of low density in the white matter most likely chronic small ve ssel ischemic changes. CEREBELLUM: No masses. No hemorrhage. No alteration of density. No evidence for acute infarction. EXTRAAXIAL SPACES: No fluid collections. No masses. ORBITS AND GLOBE: No intra- or extraconal masses. Normal contour of globe without masses. CALVARIUM: No fracture. PARANASAL SINUSES: No fluid or mucosal thickening. SOFT TISSUES: No mass or hematoma. OTHER: No other significant finding. IMPRESSION: CHRONIC MICROVASCULAR ISCHEMIA. NO ACUTE IMAGING FINDINGS IN THE BRAIN. EVIDENCE OF ACUTE STROKE: NO. COMMENT: Quality ID # [id number]: Final reports with documentation of one or more dose reduction techniques (e.g., Automated exposure control, adjustment of the mA and/or kV according to patient size, use of iterative reconstruction technique) TECHNICAL DOCUMENTATION: JOB ID: [id number] [employer]- All Rights Reserved Reading location - IP/workstation name: [email or web address]
[2017-10-07 13:12] VITALS: BP 172/55
--- NOTE | 2017-10-07 13:47 | PDOC DISCHARGE SUMMARY ---
General - Admit/Disc Date/PCP Admission Date/Primary Care Provider: 10/06/17 12:27 GRACIE RODRIGEZ, Discharge Date: 10/07/17 - Discharge Diagnosis (1) Acute renal failure (ARF) Is this a current diagnosis for this admission?: Yes (2) Lactic acid acidosis Is this a current diagnosis for this admission?: Yes Summary: Possibly due to dehydration and Metformin. Restarted on Metformin but would suggest follow up and reevaluation for need to discontinue if indicated (3) Diabetes mellitus Is this a current diagnosis for this admission?: Yes (4) Dehydration Is this a current diagnosis for this admission?: Yes - Additional Information Resuscitation Status: Full Code Discharge Diet: Diabetic Discharge Activity: Activity As Tolerated Home Medications: Aspirin [Aspirin EC] 81 mg PO DAILY 10/06/17 Clonidine HCl [Catapres 0.1 mg Tablet] 0.1 mg PO DAILY 10/06/17 Donepezil HCl [Aricept 5 mg Tablet] 5 mg PO Q12 10/06/17 Glimepiride [Amaryl 4 mg Tablet] 4 mg PO BID 10/06/17 Hydrochlorothiazide [Hydrodiuril 25 mg Tablet] 25 mg PO QAM 10/06/17 Insulin Glargine,Hum.rec.anlog [Lantus Solostar] 28 unit SQ QHS 10/06/17 Insulin Lispro [Humalog Insulin (Lispro) 100 unit/mL] 0 unit SUBCUT .SLD SCALE 10/06/17 Lisinopril [Prinivil 10 mg Tablet] 20 mg PO DAILY 10/06/17 Melatonin [Melatonin 5 mg Tablet] 10 mg PO QHS 10/06/17 Metformin HCl [Metformin HCl ER] 1,500 mg PO QPM 10/06/17 Rosuvastatin Calcium [Crestor 20 mg Tablet] 20 mg PO QHS 10/06/17 Ticagrelor [Brilinta 90 mg Tablet] 90 mg PO BID 10/06/17 History of Present Illness Patient complains of: She was admitted with complaints of falling and what appeared to be some confusion. She was found to be dehydrated. History of Present Illness: FRANCY HOLGUIN is a 76 year old female Patient presents to the emergency room today with complaints of generalized weakness and chills. She apparently fell. She denies any pain including chest pain. There is no nausea vomiting or any history of seizure activity. She was noted to have a somewhat elevated lactic acid which has not been attributed to metformin. Patient is likely dehydrated as there is no obvious source of infection identified. Hospital Course Hospital Course: She was admitted with complaints of falling and what appeared to be some confusion. She was found to be dehydrated. There was no evidence of any acute infection. She was monitored on the medical unit and patient remains stable with improvement in her mental status apparently back to baseline. Her kidney function also improved. Patient was found to have lactic acidosis and this was thought to be possibly due to metformin and dehydration and good fluids the acidosis has resolved. She has been started back on the Metformin both suggest follow-up and review as outpatient and discontinuation if needed. CT scan of the brain was done due to her confusion and this revealed no acute findings. With hemodynamic stability and with the no further interventions planned patient is been discharged home for outpatient follow-up Physical Exam Vital Signs: Temp Pulse Resp BP Pulse Ox 97.6 F 76 16 172/55 H 98 10/07/17 12:00 10/07/17 12:00 10/07/17 12:00 10/07/17 12:00 10/07/17 12:00 Intake & Output 10/06/17 10/07/17 10/08/17 06:59 06:59 06:59 Intake Total 275 Balance 275 Weight 72.1 kg General appearance: PRESENT: no acute distress Head exam: PRESENT: atraumatic Ear exam: PRESENT: normal external ear exam Neck exam: ABSENT: carotid bruit, JVD, lymphadenopathy, thyromegaly Respiratory exam: PRESENT: clear to auscultation jannet. ABSENT: rales, rhonchi, wheezes Cardiovascular exam: PRESENT: RRR. ABSENT: diastolic murmur, rubs, systolic murmur GI/Abdominal exam: PRESENT: normal bowel sounds, soft. ABSENT: distended, guarding, mass, organolmegaly, rebound, tenderness Rectal exam: PRESENT: deferred Extremities exam: PRESENT: calf tenderness Musculoskeletal exam: PRESENT: ambulatory Neurological exam: PRESENT: alert, awake, oriented to time, oriented to situation Psychiatric exam: PRESENT: appropriate affect, normal mood. ABSENT: homicidal ideation, suicidal ideation Results Laboratory Results: 10/07/17 06:13 10/07/17 06:13 10/06/17 10/07/17 10/07/17 14:00 06:13 06:13 WBC 7.2 RBC 4.24 Hgb 12.5 Hct 36.7 MCV 87 MCH 29.4 MCHC 33.9 RDW 13.8 Plt Count 208 Sodium 141.2 Potassium 4.0 Chloride 107 Carbon Dioxide 21 L Anion Gap 13 BUN 21 H Creatinine 1.12 Est GFR ( Amer) 57 L Est GFR (Non-Af Amer) 47 L Glucose 198 H Lactic Acid 1.0 Calcium 9.8 10/06/17 14:00 Troponin I 0.052 Impressions: Chest X-Ray 10/06/17 09:37 IMPRESSION: NO ACUTE RADIOGRAPHIC FINDING IN THE CHEST. Head CT 10/07/17 00:00 IMPRESSION: CHRONIC MICROVASCULAR ISCHEMIA. NO ACUTE IMAGING FINDINGS IN THE BRAIN. EVIDENCE OF ACUTE STROKE: NO. Qualifiers - * PATEINT BEING DISCHARGED WITH ANY OF THE FOLLOWING DIAGNOSIS?: No
[2017-10-07] MEDS ORDERED: INSULIN LISPRO 100 UNIT/ML 3 ML VIAL SUBCUT SCH (16:00)
[2017-10-07] MEDS ORDERED: METFORMIN HCL 500 MG TABLET PO SCH (16:00)
[2017-10-07] MEDS ORDERED: (PENDING PHARMACY ID) (Metformin Hcl [Metformin Hcl Er] 1,500 MG) PO SCH (18:00)
[2017-10-07] MEDS ORDERED: TICAGRELOR 90 MG TABLET PO SCH (18:00)
[2017-10-07] MEDS ORDERED: GLIMEPIRIDE 4 MG TABLET PO SCH (18:00)
[2017-10-07] MEDS ORDERED: DONEPEZIL HCL 5 MG TABLET PO SCH (22:00)
[2017-10-07] MEDS ORDERED: (PENDING PHARMACY ID) (Rosuvastatin Calcium [Crestor 20 Mg Tablet] 20 MG) PO SCH (22:00)
[2017-10-07] MEDS ORDERED: INSULIN GLARGINE,HUM.REC.ANLOG 300 UNIT/3 ML INSULN.PEN SUBCUT SCH (22:00)
[2017-10-07] MEDS ORDERED: ATORVASTATIN CALCIUM 40 MG TABLET PO SCH (22:00)
[2017-10-07] MEDS ORDERED: MELATONIN 5 MG TABLET PO SCH (22:00)
[2017-10-08] MEDS ORDERED: HYDROCHLOROTHIAZIDE 25 MG TABLET PO SCH (08:00)
[2017-10-08] MEDS ORDERED: CLONIDINE HCL 0.1 MG TABLET PO SCH (10:00)
[2017-10-08] MEDS ORDERED: ASPIRIN 81 MG TABLET, ENT COATED PO SCH (10:00)
== END 2017-10-07 15:08 | disposition home or self-care (01) ==
LOC: ER 09:31 → EH 12:27 → 5 15:23
PROVIDERS: ADMIT Family Medicine; ATTEND Family Medicine
DX: N17.9 Acute kidney failure, unspecified (principal); E86.0 Dehydration; E87.2 Acidosis; R53.1 Weakness; F03.90 Unspecified dementia, unspecified severity, without behavioral disturbance, psychotic disturbance, mood disturbance, and anxiety; I25.2 Old myocardial infarction; I10 Essential (primary) hypertension; I73.9 Peripheral vascular disease, unspecified; E11.9 Type 2 diabetes mellitus without complications
CPT/HCPCS: 93005; 99285; 96361; 51701; 96374; 36415 ×2; 87040; 82553; 82962 ×2; 82550; 85025; 85027; 80048; 80053; 81001; 84484; 83605; 71045; 70450; 93010; G0378 ×3; A9270 ×9; J0360 ×2; J1650; J7030; J7040; J1815; J3490

== ENCOUNTER → 2018-03-04 | Outpatient (CLI) | payer MEDICARE, BC ==
--- NOTE | 2018-03-04 16:58 | WOMENS IMAGING REPORT ---
EXAM DESCRIPTION: 3D SCREENING MAMMO BILAT COMPLETED DATE/TIME: 03/04/2018 2:59 pm REASON FOR STUDY: SCREENING MAMMO Z12.31 ENCNTR SCREEN MAMMOGRAM FOR MALIGNANT NEOPLASM OF RICH COMPARISON: None. TECHNIQUE: Standard craniocaudal and mediolateral oblique views of each breast recorded using digita l acquisition and breast tomosynthesis. LIMITATIONS: None. FINDINGS: RIGHT BREAST MASSES: No suspicious masses. CALCIFICATIONS: No new or suspicious calcifications. ARCHITECTURAL DISTORTION: None. DEVELOPING DENSITY: None. ASYMMETRY: None noted. OTHER: Nipple inversion. LEFT BREAST MASSES: No suspicious masses. CALCIFICATIONS: See below. ARCHITECTURAL DISTORTION: Upper outer quadrant architectural distortion with associated calcification about 5 cm from the nipple. DEVELOPING DENSITY: None. ASYMMETRY: None noted. OTHER: No other significant findings. Read with the assistance of CAD. .[facility] - R2 Cenova Version 1.3 .[facility] Imaging - R2 Cenova Version 1.3 .[facility] - R2 Cenova Version 2.4 .[facility] - R2 Cenova Version 2.4 .[facility] - R2 Negotiator Version 9.2 IMPRESSION: Architectural distortion left breast. Nipple inversion on the right. BREAST DENSITY: b. There are scattered areas of fibroglandular density. BIRAD: 0 Incomplete: Needs Additional Imaging Evaluation and/or prior Mammograms for Comparison. RECOMMENDATION: RECOMMENDED FOLLOW-UP: True lateral, cone compression views and ultrasound of the le ft breast. Ultrasound retroareolar right breast. The patient will be contacted for additional imaging. COMMENT: The patient has been notified of the results by letter per SA requirements. Additional no tification policies are in place for contacting patient with suspicious or incomplete findings. Quality ID #[id number]: The [employer] recommends an annual screening mammogram for women aged 40 years or over. This facility utilizes a reminder system to ensure that all patients receive reminder letters, and/or direct phone calls for appointments. This includes reminders for routine scr eening mammograms, diagnostic mammograms, or other Breast Imaging Interventions when appropriate. Th is patient will be placed in the appropriate reminder system. The [employer] (ACR) has developed recommendations for screening MRI of the breast s in certain patient populations, to be used in conjunction with mammography. Breast MRI surveillanc e may be appropriate for women with more than 20% lifetime risk of developing breast cancer as deter mined by genetic testing, significant family history of the disease, or history of mantle radiation f or Hodgkins Disease. ACR Practice Guidelines 2008. DBT Technology DBT is a type of tomographic mammography. With conventional mammography, overlapping breast tissue ma y make lesions difficult to detect, even with good compression. DBT uses an x-ray tube that rotates a round the breast, taking images at different angles. These images are then combined to create thin sl ices of the breast that the radiologist can view as a 3D reconstruction. The Nimble TV unit can perform full-field digital mammograms (2D imaging); or DBT (3D imaging); or both, in a combination mode that quickly performs both the mammogram and the tomosynthesis scan while the breast is still compressed. PQRS 6045F: Fluoroscopic imaging is not utilized for breast tomosynthesis. TECHNICAL DOCUMENTATION: FINDING NUMBER: (1) ASSESSMENT: (1) JOB ID: [id number] [employer]- All Rights Reserved Reading location - IP/workstation name: [email or web address]
== END ==
LOC: WI 14:36
PROVIDERS: ATTEND Internal Medicine Geriatric Medicine
DX: Z12.31 Encounter for screening mammogram for malignant neoplasm of breast (principal)
CPT/HCPCS: 77063; 77067

== ENCOUNTER → 2018-04-14 | Outpatient (CLI) | payer MEDICARE, BC ==
--- NOTE | 2018-04-14 17:03 | WOMENS IMAGING REPORT ---
EXAM DESCRIPTION: LEFT DIAGNOSTIC MAMMO W/CAD; U/S BREAST UNILAT LIMITED COMPLETED DATE/TIME: 04/14/2018 10:54 am; 04/14/2018 11:32 am REASON FOR STUDY: N63.21 UNSPECIFIED LUMP IN THE LEFT BREAST, UPPER OUTER QUADRANT; LT BREAST N63.21 ; RT N63.41 N63.21 UNSPECIFIED LUMP IN THE LEFT BREAST, UPPER OUTER QUAD COMPARISON: 03/04/2018 TECHNIQUE: Cone compression craniocaudal and mediolateral oblique images of the breast recorded with digital acquisition. Left breast 90 mediolateral view. Left breast and left axilla ultrasound was also performed. LIMITATIONS: None. FINDINGS: BREAST: Left MASSES: 1 to 2 cm spiculated mass upper outer quadrant left breast with nipple retraction. Masses in the upper outer quadrant left breast 1 to 2 o'clock position 5 cm from the nipple CALCIFICATIONS: No new or suspicious calcifications. ARCHITECTURAL DISTORTION: Yes, associated with the mass 1 to 2 cm in size upper outer quadrant left b reast 1 to 2 o'clock position 5 cm from the nipple DEVELOPING DENSITY: None. ASYMMETRY: None noted. OTHER: No other significant findings. Read with the assistance of CAD. .[facility] - R2 Cenova Version 1.3 .[facility] Imaging - R2 Cenova Version 1.3 .[facility] Imaging - R2 Cenova Version 2.4 .[facility] [place] R2 Cenova Version 2.4 .[facility] - R2 Building Engineer Version 9.2 Left breast ultrasound: In the left breast upper outer quadrant 5 cm from the nipple, an ill-defined hypoechoic mass is prese nt with acoustic absorption highly suspicious for malignancy. This measures about 1.5 cm in greatest diameter. Left axilla ultrasound: Ultrasound of the left axilla was performed. No enlarged lymph nodes are identified. IMPRESSION: Malignant appearing left breast upper outer quadrant mass on mammography and ultrasound. Ultrasound-guided core biopsy with post biopsy clip placement and immediate follow-up two-view mamm ogram recommended BREAST DENSITY: b. There are scattered areas of fibroglandular density. BIRAD: 5 Highly suggestive of malignancy. Appropriate action should be taken. RECOMMENDATION: RECOMMENDED FOLLOW UP: Ultrasound-guided core biopsy with post biopsy clip placement left breast mass upper outer quadrant SPECIFIC INTERVENTION/IMAGING/CONSULTATION RECOMMENDED:As above COMMUNICATION:Patient notified by letter COMMENT: The patient has been notified of the results by letter per MQSA requirements. Additional no tification policies are in place for contacting patient with suspicious or incomplete findings. Quality ID #[id number]: The [employer] recommends an annual screening mammogram for women aged 40 years or over. This facility utilizes a reminder system to ensure that all patients receive reminder letters, and/or direct phone calls for appointments. This includes reminders for routine scr eening mammograms, diagnostic mammograms, or other Breast Imaging Interventions when appropriate. Th is patient will be placed in the appropriate reminder system. The [employer] (ACR) has developed recommendations for screening MRI of the breast s in certain patient populations, to be used in conjunction with mammography. Breast MRI surveillanc e may be appropriate for women with more than 20% lifetime risk of developing breast cancer as deter mined by genetic testing, significant family history of the disease, or history of mantle radiation f or Hodgkins Disease. ACR Practice Guidelines 2008. TECHNICAL DOCUMENTATION: FINDING NUMBER: (1) ASSESSMENT: (1) JOB ID: [id number] [employer]- All Rights Reserved Reading location - IP/workstation name: [facility]
--- NOTE | 2018-04-14 17:03 | WOMENS IMAGING REPORT ---
EXAM DESCRIPTION: LEFT DIAGNOSTIC MAMMO W/CAD; U/S BREAST UNILAT LIMITED COMPLETED DATE/TIME: 04/14/2018 10:54 am; 04/14/2018 11:32 am REASON FOR STUDY: N63.21 UNSPECIFIED LUMP IN THE LEFT BREAST, UPPER OUTER QUADRANT; LT BREAST N63.21 ; RT N63.41 N63.21 UNSPECIFIED LUMP IN THE LEFT BREAST, UPPER OUTER QUAD COMPARISON: 03/04/2018 TECHNIQUE: Cone compression craniocaudal and mediolateral oblique images of the breast recorded with digital acquisition. Left breast 90 mediolateral view. Left breast and left axilla ultrasound was also performed. LIMITATIONS: None. FINDINGS: BREAST: Left MASSES: 1 to 2 cm spiculated mass upper outer quadrant left breast with nipple retraction. Masses in the upper outer quadrant left breast 1 to 2 o'clock position 5 cm from the nipple CALCIFICATIONS: No new or suspicious calcifications. ARCHITECTURAL DISTORTION: Yes, associated with the mass 1 to 2 cm in size upper outer quadrant left b reast 1 to 2 o'clock position 5 cm from the nipple DEVELOPING DENSITY: None. ASYMMETRY: None noted. OTHER: No other significant findings. Read with the assistance of CAD. .[facility] - R2 Cenova Version 1.3 .[facility] - R2 Cenova Version 1.3 .[facility] Imaging - R2 Cenova Version 2.4 .[facility] - R2 Cenova Version 2.4 .[facility] - R2 Nautical Instrument Mechanic Version 9.2 Left breast ultrasound: In the left breast upper outer quadrant 5 cm from the nipple, an ill-defined hypoechoic mass is prese nt with acoustic absorption highly suspicious for malignancy. This measures about 1.5 cm in greatest diameter. Left axilla ultrasound: Ultrasound of the left axilla was performed. No enlarged lymph nodes are identified. IMPRESSION: Malignant appearing left breast upper outer quadrant mass on mammography and ultrasound. Ultrasound-guided core biopsy with post biopsy clip placement and immediate follow-up two-view mamm ogram recommended BREAST DENSITY: b. There are scattered areas of fibroglandular density. BIRAD: 5 Highly suggestive of malignancy. Appropriate action should be taken. RECOMMENDATION: RECOMMENDED FOLLOW UP: Ultrasound-guided core biopsy with post biopsy clip placement left breast mass upper outer quadrant SPECIFIC INTERVENTION/IMAGING/CONSULTATION RECOMMENDED:As above COMMUNICATION:Patient notified by letter COMMENT: The patient has been notified of the results by letter per MQSA requirements. Additional no tification policies are in place for contacting patient with suspicious or incomplete findings. Quality ID #[id number]: The [employer] recommends an annual screening mammogram for women aged 40 years or over. This facility utilizes a reminder system to ensure that all patients receive reminder letters, and/or direct phone calls for appointments. This includes reminders for routine scr eening mammograms, diagnostic mammograms, or other Breast Imaging Interventions when appropriate. Th is patient will be placed in the appropriate reminder system. The [employer] (ACR) has developed recommendations for screening MRI of the breast s in certain patient populations, to be used in conjunction with mammography. Breast MRI surveillanc e may be appropriate for women with more than 20% lifetime risk of developing breast cancer as deter mined by genetic testing, significant family history of the disease, or history of mantle radiation f or Hodgkins Disease. ACR Practice Guidelines 2008. TECHNICAL DOCUMENTATION: FINDING NUMBER: (1) ASSESSMENT: (1) JOB ID: [id number] [employer] All Rights Reserved Reading location - IP/workstation name: [facility]
--- NOTE | 2018-04-14 17:03 | WOMENS IMAGING REPORT ---
EXAM DESCRIPTION: LEFT DIAGNOSTIC MAMMO W/CAD; U/S BREAST UNILAT LIMITED COMPLETED DATE/TIME: 04/14/2018 10:54 am; 04/14/2018 11:32 am REASON FOR STUDY: N63.21 UNSPECIFIED LUMP IN THE LEFT BREAST, UPPER OUTER QUADRANT; LT BREAST N63.21 ; RT N63.41 N63.21 UNSPECIFIED LUMP IN THE LEFT BREAST, UPPER OUTER QUAD COMPARISON: 03/04/2018 TECHNIQUE: Cone compression craniocaudal and mediolateral oblique images of the breast recorded with digital acquisition. Left breast 90 mediolateral view. Left breast and left axilla ultrasound was also performed. LIMITATIONS: None. FINDINGS: BREAST: Left MASSES: 1 to 2 cm spiculated mass upper outer quadrant left breast with nipple retraction. Masses in the upper outer quadrant left breast 1 to 2 o'clock position 5 cm from the nipple CALCIFICATIONS: No new or suspicious calcifications. ARCHITECTURAL DISTORTION: Yes, associated with the mass 1 to 2 cm in size upper outer quadrant left b reast 1 to 2 o'clock position 5 cm from the nipple DEVELOPING DENSITY: None. ASYMMETRY: None noted. OTHER: No other significant findings. Read with the assistance of CAD. .[facility] - R2 Cenova Version 1.3 .[facility] Imaging - R2 Cenova Version 1.3 .[facility] Imaging - R2 Cenova Version 2.4 .[facility] - R2 Cenova Version 2.4 .[facility] - R2 Peoplesoft Version 9.2 Left breast ultrasound: In the left breast upper outer quadrant 5 cm from the nipple, an ill-defined hypoechoic mass is prese nt with acoustic absorption highly suspicious for malignancy. This measures about 1.5 cm in greatest diameter. Left axilla ultrasound: Ultrasound of the left axilla was performed. No enlarged lymph nodes are identified. IMPRESSION: Malignant appearing left breast upper outer quadrant mass on mammography and ultrasound. Ultrasound-guided core biopsy with post biopsy clip placement and immediate follow-up two-view mamm ogram recommended BREAST DENSITY: b. There are scattered areas of fibroglandular density. BIRAD: 5 Highly suggestive of malignancy. Appropriate action should be taken. RECOMMENDATION: RECOMMENDED FOLLOW UP: Ultrasound-guided core biopsy with post biopsy clip placement left breast mass upper outer quadrant SPECIFIC INTERVENTION/IMAGING/CONSULTATION RECOMMENDED:As above COMMUNICATION:Patient notified by letter COMMENT: The patient has been notified of the results by letter per MQSA requirements. Additional no tification policies are in place for contacting patient with suspicious or incomplete findings. Quality ID #[id number]: The [employer] recommends an annual screening mammogram for women aged 40 years or over. This facility utilizes a reminder system to ensure that all patients receive reminder letters, and/or direct phone calls for appointments. This includes reminders for routine scr eening mammograms, diagnostic mammograms, or other Breast Imaging Interventions when appropriate. Th is patient will be placed in the appropriate reminder system. The [employer] (ACR) has developed recommendations for screening MRI of the breast s in certain patient populations, to be used in conjunction with mammography. Breast MRI surveillanc e may be appropriate for women with more than 20% lifetime risk of developing breast cancer as deter mined by genetic testing, significant family history of the disease, or history of mantle radiation f or Hodgkins Disease. ACR Practice Guidelines 2008. TECHNICAL DOCUMENTATION: FINDING NUMBER: (1) ASSESSMENT: (1) JOB ID: [id number] [employer]- All Rights Reserved Reading location - IP/workstation name: [email or web address]
== END ==
LOC: WI 10:35
PROVIDERS: ATTEND Internal Medicine Geriatric Medicine
DX: N63.21 Unspecified lump in the left breast, upper outer quadrant (principal); N63.41 Unspecified lump in right breast, subareolar
CPT/HCPCS: 76642

== ENCOUNTER → 2018-04-28 | Day surgery (SDC) | payer MEDICARE, BC ==
[~2018-04-28] MED LIST changes: -CEFAZOLIN 1 GM/D5W RTU 1 GM/50 ML RTUPB IV PRN; -LACTATED RINGERS 1000 ML IV PRN; -LIDOCAINE 0.5% INJ-PF (5 MG/ML) 50 ML SDV SUBCUT PRN; +LIDOCAINE 1% INJ-PF (10 MG/ML) 30 ML SDV ONE
== END ==
LOC: WI 12:19
PROVIDERS: ATTEND Internal Medicine Geriatric Medicine
DX: R92.8 Other abnormal and inconclusive findings on diagnostic imaging of breast (principal)
CPT/HCPCS: 88342 ×2; 88341 ×2; 88305 ×2; 19083; J3490

== ENCOUNTER → 2019-03-08 | Outpatient (CLI) | payer MEDICARE, BC ==
--- NOTE | 2019-03-08 13:54 | WOMENS IMAGING REPORT ---
EXAM DESCRIPTION: 3D SCREENING MAMMO BILAT COMPLETED DATE/TIME: 03/08/2019 11:34 am REASON FOR STUDY: Z12.31 ENCOUNTER FOR SCREENING MAMMOGRAM FOR MALIGNANT NEOPLASM OF BREAST Z12.31 ENCNTR SCREEN MAMMOGRAM FOR MALIGNANT NEOPLASM OF RICH COMPARISON: Multiple since 2018 EXAM PARAMETERS: Standard craniocaudal and mediolateral oblique views of each breast recorded using digital acquisition and breast tomosynthesis. Read with the assistance of CAD. .[facility] - R2 [employer] Research Analyst Version 9.2 LIMITATIONS: None. FINDINGS: Findings present which are benign by mammographic criteria. No suspicious masses, calcific ations or architectural distortion. Pertinent benign findings: Old postsurgical change left breast upper outer quadrant from remote prior biopsy. Bilateral stable nipple retraction. Bilateral breast parenchymal and vascular calcificatio ns. Benign mammographic findings may include one or more of the following: Smooth masses, popcorn/rim/coa rse calcifications, asymmetries, post-procedure changes, and lesions with long-standing stability. IMPRESSION: BENIGN MAMMOGRAPHIC FINDINGS. BIRADS 2 BREAST DENSITY: c. The breasts are heterogeneously dense, which may obscure small masses. BIRAD: ASSESSMENT: 2 BENIGN FINDING(S) RECOMMENDATION: ROUTINE SCREENING COMMENT: The patient has been notified of the results by letter per SA requirements. Additional no tification policies are in place for contacting patient with suspicious or incomplete findings. Quality ID #[id number]: The [employer] recommends an annual screening mammogram for women aged 40 years or over. This facility utilizes a reminder system to ensure that all patients receive reminder letters, and/or direct phone calls for appointments. This includes reminders for routine scr eening mammograms, diagnostic mammograms, or other Breast Imaging Interventions when appropriate. Th is patient will be placed in the appropriate reminder system. TECHNICAL DOCUMENTATION: FINDING NUMBER: (1) ASSESSMENT: (1) JOB ID: [id number] [employer]- All Rights Reserved Reading location - IP/workstation name: [email or web address]
== END ==
LOC: WI 11:14
PROVIDERS: ATTEND Internal Medicine Geriatric Medicine
DX: Z12.31 Encounter for screening mammogram for malignant neoplasm of breast (principal)
CPT/HCPCS: 77063; 77067

== ENCOUNTER 2019-08-30 16:32 | Emergency (ER) | payer MEDICARE, BC ==
--- NOTE | 2019-08-30 18:11 | ER Document Report ---
ED Medical Screen (RME) - General Chief Complaint: Cough Stated Complaint: FEVER,CONGESTION Time Seen by Provider: 08/30/19 17:58 Primary Care Provider: MUSA LEON MD [Primary Care Provider] - Follow up as needed Notes: Patient is a 78-year-old female who presents to the emergency department with a chief complaint of a cough and shortness of breath. She has had her symptoms for the past 2 to 3 weeks. Patient was seen by her primary care provider and was referred to the emergency department for coarse breath sounds. Patient also has some confusion, more than normal, as the patient has dementia. Exam: Coarse breath sounds throughout all lung voss. I have greeted and performed a rapid initial assessment of this patient. A comprehensive ED assessment and evaluation of the patient, analysis of test results and completion of medical decision making process will be conducted by an additional ED providers. TRAVEL OUTSIDE OF THE [place] IN LAST 30 DAYS: No - Related Data Allergies/Adverse Reactions: codeine [Codeine] Allergy (Verified 09/17/14 19:49) Home Medications: Metformin. Amlodipine besylate-valsarta. Glyxamby. Rosuvastatin. Aspirin. Hydrochlorothiazide. Lantus. Humalog. Brilinta. Vitamin B12 Past Medical History - Social History Frequency of alcohol use: None Drug Abuse: None - Past Medical History Cardiac Medical History: Reports: Hx Heart Attack - 2015, Hx Hypercholesterolemia, Hx Hypertension, Hx Peripheral Vascular Disease Denies: Hx Coronary Artery Disease Pulmonary Medical History: Denies: Hx Asthma, Hx Bronchitis, Hx COPD, Hx Pneumonia, Hx Tuberculosis Neurological Medical History: Denies: Hx Cerebrovascular Accident, Hx Seizures Endocrine Medical History: Reports: Hx Diabetes Mellitus Type 2 Renal/ Medical History: Denies: Hx Peritoneal Dialysis GI Medical History: Denies: Hx Hepatitis, Hx Hiatal Hernia, Hx Ulcer Musculoskeltal Medical History: Denies Hx Arthritis Infectious Medical History: Denies: Hx Hepatitis Past Surgical History: Reports: Hx Cardiac Surgery - stents, Hx Hysterectomy. Denies: Hx Mastectomy, Hx Open Heart Surgery, Hx Pacemaker - Immunizations Hx Diphtheria, Pertussis, Tetanus Vaccination: Yes Physical Exam - Vital signs Vitals: Temp Pulse Resp BP Pulse Ox 99.3 F 86 24 H 191/61 H 100 08/30/19 16:58 08/30/19 16:58 08/30/19 16:58 08/30/19 16:58 08/30/19 16:58 Course - Vital Signs Vital signs: Temp Pulse Resp BP Pulse Ox 99.3 F 86 24 H 191/61 H 100 08/30/19 16:58 08/30/19 16:58 08/30/19 16:58 08/30/19 16:58 08/30/19 16:58 Doctor's Discharge - Discharge Referrals: MUSA LEON MD [Primary Care Provider] - Follow up as needed
--- NOTE | 2019-08-30 19:23 | RADIOLOGY REPORT (SQ) ---
EXAM DESCRIPTION: CHEST SINGLE VIEW COMPLETED DATE/TIME: 08/30/2019 7:12 pm REASON FOR STUDY: shortness of breath; cough COMPARISON: 03/28/2015 TECHNIQUE: Single frontal radiographic view of the chest acquired. NUMBER OF VIEWS: One view. LIMITATIONS: None. FINDINGS: LUNGS AND PLEURA: No pneumothorax. No consolidation or pleural effusion. MEDIASTINUM AND HILAR STRUCTURES: Stable. HEART AND VASCULAR STRUCTURES: Stable. BONES: No acute findings. HARDWARE: None in the chest. OTHER: No other significant finding. IMPRESSION: NO ACUTE FINDINGS. TECHNICAL DOCUMENTATION: JOB ID: [id number] [id number] 2010 [employer]- All Rights Reserved Reading location - IP/workstation name: [email or web address]
[2019-08-30 19:24] LABS: ABSOLUTE LYMPHOCYTES (AUTO) 0.6 10^3/uL (0.5-4.7); ABSOLUTE MONOCYTES (AUTO) 1.3 10^3/uL (0.1-1.4); ABSOLUTE NEUT (AUTO) 5.6 10^3/uL (1.7-8.2); BASOPHILS % (AUTO) 0.6 % (0-2); EOSINOPHILS % (AUTO) 0.1 % (0-6); HEMATOCRIT 35.5 % (36.0-47.0); HEMOGLOBIN 12.3 g/dL (12.0-15.5); LYMPHOCYTES % (AUTO) 7.5 % (13-45); MEAN CORPUSCULAR HEMOGLOBIN 30.6 pg (27.0-33.4); MEAN CORPUSCULAR HGB CONC 34.6 g/dL (32.0-36.0); MEAN CORPUSCULAR VOLUME 88 fl (80-97); PLATELET COUNT 178 10^3/uL (150-450); RED BLOOD COUNT 4.01 10^6/uL (3.72-5.28); SEGMENTED NEUTROPHILS % (AUTO) 74.8 % (42-78); TOTAL CELLS COUNTED % (AUTO) 100 %; WHITE BLOOD COUNT 7.4 10^3/uL (4.0-10.5)
[2019-08-30 19:41] LABS: ALBUMIN 3.9 g/dL (3.5-5.0); ALKALINE PHOSPHATASE 64 U/L (38-126); ANION GAP 14 (5-19); ASPARTATE AMINO TRANSFERASE 28 U/L (14-36); BILIRUBIN,DIRECT 0.3 mg/dL (0.0-0.4); BILIRUBIN,TOTAL 0.6 mg/dL (0.2-1.3); BLOOD UREA NITROGEN 26 mg/dL (7-20); CALCIUM 9.5 mg/dL (8.4-10.2); CARBON DIOXIDE 23 mmol/L (22-30); CHLORIDE 99 mmol/L (98-107); GLUCOSE 146 mg/dL (75-110); POTASSIUM 4.1 mmol/L (3.6-5.0); TOTAL PROTEIN 7.3 g/dL (6.3-8.2)
[2019-08-30 19:41] LABS: AMORPHOUS SEDIMENT,URINE TRACE /HPF; APPEARANCE,URINE SLIGHTLY-CLOUDY; BILIRUBIN,URINE NEGATIVE (NEGATIVE); COLOR,URINE YELLOW; GLUCOSE, URINE >=500 mg/dL (NEGATIVE); KETONES,URINE TRACE mg/dL (NEGATIVE); LEUKOCYTE ESTERASE,URINE NEGATIVE (NEGATIVE); NITRITE,URINE NEGATIVE (NEGATIVE); PROTEIN,URINE 100 mg/dL (NEGATIVE); URINE SPECIFIC GRAVITY 1.027; UROBILINOGEN,URINE NEGATIVE mg/dL (<2.0)
[2019-08-30] MEDS ORDERED: LIDOCAINE 1% INJ-PF (10 MG/ML) 30 ML SDV NEB ONE (21:28)
[2019-08-30] MEDS ORDERED: ALBUTEROL SULFATE 0.083% NEB 2.5 MG/3 ML AMPUL NEB ONE (21:29)
--- NOTE | 2019-08-30 21:29 | ER Document Report ---
ED General - General Chief Complaint: Cough Stated Complaint: FEVER,CONGESTION Time Seen by Provider: 08/30/19 17:58 Primary Care Provider: MUSA LEON MD [Primary Care Provider] - Follow up tomorrow Notes: Patient is a 78-year-old female that comes emergency department for chief complaint of persistent cough. She states that she has been wheezing her midline, has trouble sleeping, coughs all night. She states this is been present almost 3 weeks, she saw her primary care provider and has been taking Tessalon. Daughter states that patient is also had weakness today, normally she ambulates without difficulty but today she needed more assistance. Patient states her pain is mostly with cough and she denies specific chest pain otherwise, she reports some chills but denies fevers, she denies headache, vo miting, abdominal pain. She states she has COPD from secondhand smoke. She is not on home oxygen. Patient also has a history of [place] in 2015, peripheral vascular disease, hypertension, hyperlipidemia, type 2 diabetes, and dementia. Patient is reportedly at her mental baseline per family. TRAVEL OUTSIDE OF THE [place] IN LAST 30 DAYS: No - Related Data Allergies/Adverse Reactions: No Known Allergies Allergy (Unverified 08/30/19 22:15) Home Medications: Metformin. Amlodipine besylate-valsarta. Glyxamby. Rosuvastatin. Aspirin. Hydrochlorothiazide. Lantus. Humalog. Brilinta. Vitamin B12 Past Medical History - General Information source: Patient, Relative - Social History Smoking Status: Never Smoker Frequency of alcohol use: None Drug Abuse: None Lives with: Family Family History: Reviewed & Not Pertinent Patient has suicidal ideation: No Patient has homicidal ideation: No - Past Medical History Cardiac Medical History: Reports: Hx Heart Attack - 2015, Hx Hypercholesterolemia, Hx Hypertension, Hx Peripheral Vascular Disease Denies: Hx Coronary Artery Disease Pulmonary Medical History: Denies: Hx Asthma, Hx Bronchitis, Hx COPD, Hx Pneumonia, Hx Tuberculosis Neurological Medical History: Denies: Hx Cerebrovascular Accident, Hx Seizures Endocrine Medical History: Reports: Hx Diabetes Mellitus Type 2 Renal/ Medical History: Denies: Hx Peritoneal Dialysis GI Medical History: Denies: Hx Hepatitis, Hx Hiatal Hernia, Hx Ulcer Musculoskeletal Medical History: Denies Hx Arthritis Infectious Medical History: Denies: Hx Hepatitis Past Surgical History: Reports: Hx Cardiac Surgery - stents, Hx Hysterectomy. Denies: Hx Mastectomy, Hx Open Heart Surgery, Hx Pacemaker - Immunizations Hx Diphtheria, Pertussis, Tetanus Vaccination: Yes Hx Pneumococcal Vaccination: 04/05/16 Review of Systems - Review of Systems Constitutional: See HPI EENT: No symptoms reported Cardiovascular: No symptoms reported Respiratory: See HPI Gastrointestinal: No symptoms reported Genitourinary: No symptoms reported Female Genitourinary: No symptoms reported Musculoskeletal: No symptoms reported Skin: No symptoms reported Hematologic/Lymphatic: No symptoms reported Neurological/Psychological: No symptoms reported Physical Exam - Vital signs Vitals: Temp Pulse Resp BP Pulse Ox 99.3 F 86 24 H 191/61 H 100 08/30/19 16:58 08/30/19 16:58 08/30/19 16:58 08/30/19 16:58 08/30/19 16:58 - Notes Notes: GENERAL: Alert, interacts well. No acute distress. HEAD: Normocephalic, atraumatic. EYES: Pupils equal, round, and reactive to light. Extraocular movements intact. ENT: Oral mucosa moist, tongue midline. Oropharynx unremarkable. Airway patent. Nares patent, no nasal septal hematoma, TM's intact. NECK: Full range of motion. Supple. Trachea midline. LUNGS: Clear to auscultation bilaterally, no wheezes, rales, or rhonchi. No respiratory distress. HEART: Regular rate and rhythm. No murmur ABDOMEN: Soft, non-tender. Non-distended. Bowel sounds present in all 4 quadrants. GENITOURINARY: Deferred EXTREMITIES: Moves all 4 extremities spontaneously. No edema, normal radial and dorsalis pedis pulses bilaterally. No cyanosis. BACK: no cervical, thoracic, lumbar midline tenderness. No saddle anesthesia, normal distal neurovascular exam. Moves all extremities in full range of motion. NEUROLOGICAL: Alert and oriented x3. Normal speech. Cranial nerves II through XII grossly intact. PSYCH: Normal affect, normal mood. SKIN: Warm, dry, normal turgor. No rashes or lesions noted. Course - Re-evaluation Re-evalutation: On my evaluation patient is persistently coughing. She has clear breath sounds except for a few coarse breath sounds, she has no tachypnea or hypoxia, she is not in respiratory distress. Patient was given an albuterol treatment and a lidocaine treatment. After this her coughing resolved and she states she feels much better. Patient is requesting to go home. Vital signs are significantly improved now that patient has stopped coughing persistently. Chest x-ray negative, EKG with no acute findings, CBC nonspecific, chemistry shows baseline creatinine. BNP from triage completed and elevated but I do not have any comparison, troponin is indeterminate. I discussed with family. Discussed trending labs, they declined, they have been here a long time and are requesting to go home. Patient has not had any chest pain. Symptoms completely resolved with breathing treatments. Symptoms have been going on for days. I do have a high suspicion that this is upper respiratory in nature. Patient is ask ing for a spacer and discharge. Urine shows possible infection, influenza negative. Given coverage for urine and potential coverage for developing pneumonia because of her persistent cough with doxycycline. They are requesting cough syrup for patient to take so she can finally sleep at night. Discussed how this could cause concerning symptoms in a patient her age, they state that they have had this before recently, she did very well with this, they will use half doses and only if absolutely necessary. Daughter states that she will monitor her closely while doing this. As a result patient was provided with this. Discussed very close follow-up with primary care and return precautions. They state appreciation and agreement. Stable at time of discharge. - Vital Signs Vital signs: Temp Pulse Resp BP Pulse Ox 99.4 F 86 27 H 154/51 H 99 08/30/19 21:21 08/30/19 16:58 08/31/19 00:01 08/31/19 00:01 08/31/19 00:01 - Laboratory Result Diagrams: 08/30/19 18:55 08/30/19 18:55 Laboratory results interpreted by me: 08/30/19 08/30/19 08/30/19 18:55 18:55 18:55 Hct 35.5 L Lymph % (Auto) 7.5 L [place] % (Auto) 17.0 H Sodium 135.7 L BUN 26 H Creatinine 1.40 H Est GFR ( Amer) 44 L Est GFR (MDRD) Non-Af 36 L Glucose 146 H NT-Pro-B Natriuret Pep 1980 H Urine Protein Urine Glucose (UA) Urine Ketones Urine Blood Urine Ascorbic Acid 08/30/19 19:00 Hct Lymph % (Auto) [place] % (Auto) Sodium BUN Creatinine Est GFR ( Amer) Est GFR (MDRD) Non-Af Glucose NT-Pro-B Natriuret Pep Urine Protein 100 H Urine Glucose (UA) >=500 H Urine Ketones TRACE H Urine Blood MODERATE H Urine Ascorbic Acid 20 H - EKG Interpretation by Me Additional EKG results interpreted by me: EKG shows sinus rhythm at a rate of 73, borderline ST segment changes in anterior leads, no ischemic T waves. No significant change compared to prior. Left axis deviation. Discharge - Discharge Clinical Impression: Cough, Wheezing Upper respiratory infection Qualifiers: URI type: unspecified URI Qualified Code(s): J06.9 - Acute upper respiratory infection, unspecified Condition: Stable Disposition: HOME, SELF-CARE Additional Instructions: Your evaluation is most consistent with an upper respiratory infection, probably bronchitis. This does take a long time to resolve. You have a borderline infection in your urine, we also are treating you to prevent pneumonia, take antibiotic as prescribed to completion. Use the spacer with your albuterol inhaler, take the cough medicine only if absolutely needed, you can use half the dose of this, consider MiraLAX or similar [id number] medication to avoid constipation. Follow-up with primary care for additional evaluation management. Return if you worsen including rapid or labored breathing, spiking fevers, chest pain, or any other concerning or worsening symptoms. Prescriptions: Hydrocodone Bit/Homatropine [Hycodan Syrup 5-1.5 mg/5 ml Ud Cup] 2.5 ml PO Q4HP PRN #120 ml PRN Reason: Doxycycline Hyclate [Vibramycin 100 mg Tablet] 100 mg PO BID 7 Days #14 tablet Referrals: MUSA LEON MD [Primary Care Provider] - Follow up tomorrow
[2019-08-30 22:21] LABS: A TYPE INFLUENZA AG NEGATIVE (NEGATIVE); B INFLUENZA AG NEGATIVE (NEGATIVE)
[2019-08-30] MEDS ORDERED: HYDROCODONE/ACETAMINOPHEN 5-325 MG TABLET PO ONE (23:50)
[2019-08-30] MEDS ORDERED: ONDANSETRON 4 MG TAB.RAPDIS PO ONE (23:50)
[2019-08-30] MEDS ORDERED: DOXYCYCLINE HYCLATE 100 MG TABLET PO ONE (23:50)
[2019-08-31 00:16] VITALS: BP 154/51
--- NOTE | 2019-08-31 17:29 | EKG REPORT ---
SEVERITY:- ABNORMAL ECG - SINUS RHYTHM LEFT AXIS DEVIATION : Confirmed by: Jacki Vann MD 31-Aug-2019 17:27:45
== END 2019-08-31 00:16 | disposition home or self-care (01) ==
LOC: ER 16:32
DX: J06.9 Acute upper respiratory infection, unspecified (principal); R05 Cough; R06.2 Wheezing; R50.9 Fever, unspecified; R09.81 Nasal congestion; R07.9 Chest pain, unspecified; J44.9 Chronic obstructive pulmonary disease, unspecified; I25.2 Old myocardial infarction; I73.9 Peripheral vascular disease, unspecified; I10 Essential (primary) hypertension; E11.9 Type 2 diabetes mellitus without complications; F03.90 Unspecified dementia, unspecified severity, without behavioral disturbance, psychotic disturbance, mood disturbance, and anxiety; Z79.84 Long term (current) use of oral hypoglycemic drugs; Z79.899 Other long term (current) drug therapy; Z79.4 Long term (current) use of insulin
CPT/HCPCS: 93005; 94640; 99284; 36415; 85025; 80053; 81001; 84484; 87804; 83880; 71045; 93010; A9270 ×4; J3490; S0119

== ENCOUNTER 2019-09-09 13:08 | Emergency (ER) | payer MEDICARE, BC ==
[~2019-09-09 13:08] MED LIST changes: +ASPIRIN 81 MG TABLET, CHEWABLE ONE; -LIDOCAINE 1% INJ-PF (10 MG/ML) 30 ML SDV ONE
[2019-09-09] MEDS ORDERED: NORMAL SALINE 1000 ML 1,000 ML IV ONE (13:39)
--- NOTE | 2019-09-09 13:40 | ER Document Report ---
ED Medical Screen (RME) - General Chief Complaint: Breathing Difficulty Stated Complaint: DIFFICULTY BREATHING Time Seen by Provider: 09/09/19 13:32 Primary Care Provider: MUSA LEON MD [Primary Care Provider] - Follow up as needed Mode of Arrival: Wheelchair Information source: Patient Notes: 78-year-old female presented to ED for shortness of breath since a week and a half ago. Patient does have a history of COPD she also has a history of cardiac problems. Daughter states that she was walking into the living room when she gave out states she is just too tired she cannot breathe she needs to get checked out. She has had a history of 3 stents 6 years ago. Daughter states that the patient is has never smoked but her her was a heavy smoker. I have greeted and performed a rapid initial assessment of this patient. A comprehensive ED assessment and evaluation of the patient, analysis of test results and completion of medical decision making process will be conducted by an additional ED providers. TRAVEL OUTSIDE OF THE [place] IN LAST 30 DAYS: No - Related Data Allergies/Adverse Reactions: No Known Allergies Allergy (Unverified 08/30/19 22:15) Past Medical History - Past Medical History Cardiac Medical History: Reports: Hx Heart Attack - 2015, Hx Hypercholesterolemia, Hx Hypertension, Hx Peripheral Vascular Disease Pulmonary Medical History: Reports: Hx COPD Endocrine Medical History: Reports: Hx Diabetes Mellitus Type 2 Renal/ Medical History: Denies: Hx Peritoneal Dialysis GI Medical History: Denies: Hx Hepatitis, Hx Hiatal Hernia, Hx Ulcer Musculoskeltal Medical History: Denies Hx Arthritis Infectious Medical History: Denies: Hx Hepatitis Past Surgical History: Reports: Hx Cardiac Surgery - stents, Hx Hysterectomy. Denies: Hx Mastectomy, Hx Open Heart Surgery, Hx Pacemaker - Immunizations Hx Diphtheria, Pertussis, Tetanus Vaccination: Yes Physical Exam - Vital signs Vitals: Temp Pulse Resp BP Pulse Ox 97.7 F 77 18 94/42 L 99 09/09/19 13:16 09/09/19 13:16 09/09/19 13:16 09/09/19 13:16 09/09/19 13:16 Course - Vital Signs Vital signs: Temp Pulse Resp BP Pulse Ox 97.7 F 77 18 94/42 L 99 09/09/19 13:16 09/09/19 13:16 09/09/19 13:16 09/09/19 13:16 09/09/19 13:16 Doctor's Discharge - Discharge Referrals: MUSA LEON MD [Primary Care Provider] - Follow up as needed
[2019-09-09 14:19] LABS: ABSOLUTE LYMPHOCYTES (AUTO) 1.8 10^3/uL (0.5-4.7); ABSOLUTE MONOCYTES (AUTO) 0.9 10^3/uL (0.1-1.4); ABSOLUTE NEUT (AUTO) 7.5 10^3/uL (1.7-8.2); BASOPHILS % (AUTO) 0.3 % (0-2); EOSINOPHILS % (AUTO) 0.1 % (0-6); HEMATOCRIT 38.6 % (36.0-47.0); HEMOGLOBIN 13.4 g/dL (12.0-15.5); LYMPHOCYTES % (AUTO) 17.2 % (13-45); MEAN CORPUSCULAR HEMOGLOBIN 30.6 pg (27.0-33.4); MEAN CORPUSCULAR HGB CONC 34.6 g/dL (32.0-36.0); MEAN CORPUSCULAR VOLUME 88 fl (80-97); MONOCYTES % (AUTO) 8.7 % (3-13); PLATELET COUNT 278 10^3/uL (150-450); RED BLOOD COUNT 4.36 10^6/uL (3.72-5.28); RED CELL DISTRIBUTION WIDTH 14.1 % (11.5-14.0); SEGMENTED NEUTROPHILS % (AUTO) 73.7 % (42-78); TOTAL CELLS COUNTED % (AUTO) 100 %; WHITE BLOOD COUNT 10.2 10^3/uL (4.0-10.5)
--- NOTE | 2019-09-09 14:20 | ER Document Report ---
Inclusion/Exclusion-STEMI - Absolute Contraindications: Any prior Intracranial Hemorrhage: No Known structural cerebral vascular lesion (AV malformations): No Ischemic stroke with 3 months(except acute ischemic stroke with symptom onset with past 4.5 hours): No Suspected aortic dissection: No Active bleeding or bleeding diathesis (excluding menses): No Significant closed head or facial trauma within 3 months: No Intracranial or intraspinal surgery within 2 months: No Severe uncontrolled hypertension unresponsive to emergent therapy: No If yes to any of the above, DO NOT ADMINISTER FIBRINOLYTIC. Prepare patient for rapid transfer for primary PCI. - Relative Contraindictations: History of chronic, severe. poorly controlled HTN: No Significant HTN on presentation(SBP greater than 180mm Hg or DBP greater than 110 mm Hg): No History of prior ischemic stroke greater than 3 months: No Dementia: Yes Known intracranial pathology not covered in absolute contraindications: No Traumatic or prolonged CPR (Greater than 10 minutes): No Major Surgery less than 3 weeks: No Recent internal bleeding (within 2-4 weeks): No Non compressible vascular puncture: No : No Active peptic ulcer: No Oral anticoagulant therapy: Yes Consider transfer for primary PCI, if severe symptoms of cardiogenic shock (SBP less than 90 or Pulse pressure greater than 20 mmHg).
--- NOTE | 2019-09-09 14:33 | ER Document Report ---
ED General - General Chief Complaint: Breathing Difficulty Stated Complaint: DIFFICULTY BREATHING Time Seen by Provider: 09/09/19 13:32 Primary Care Provider: MUSA LEON MD [Primary Care Provider] - Follow up as needed Mode of Arrival: Wheelchair Information source: Patient, Relative Cannot obtain history due to: Dementia Notes: Patient is a 78-year-old female who comes in with complaints of dyspnea. Denies pain. EKG showing to me has ST elevation with tombstones. Patient apparently began having some dyspnea over the last few days per her daughter but looked worse today, so daughter brought her to the emergency department. Patient has no chest pain or abdominal pain. No neck or back pain. She is however clutching her chest while talking to me. Patient is taking Brilinta. History of cardiac catheterization at [facility] approximately 7 years ago. No aspirin today. TRAVEL OUTSIDE OF THE [place] IN LAST 30 DAYS: No - HPI Onset: Yesterday Onset/Duration: Worse Exacerbated by: Denies Relieved by: Denies - Related Data Allergies/Adverse Reactions: No Known Allergies Allergy (Unverified 08/30/19 22:15) Past Medical History - General Information source: Patient, Relative Cannot obtain history due to: Dementia - Social History Smoking Status: Never Smoker Family History: Reviewed & Not Pertinent Patient has suicidal ideation: No Patient has homicidal ideation: No - Past Medical History Cardiac Medical History: Reports: Hx Heart Attack - 2015, Hx Hypercholesterolemia, Hx Hypertension, Hx Peripheral Vascular Disease Denies: Hx Coronary Artery Disease Pulmonary Medical History: Reports: Hx COPD Denies: Hx Asthma, Hx Bronchitis, Hx Pneumonia, Hx Tuberculosis Neurological Medical History: Denies: Hx Cerebrovascular Accident, Hx Seizures Endocrine Medical History: Reports: Hx Diabetes Mellitus Type 2 Renal/ Medical History: Denies: Hx Peritoneal Dialysis GI Medical History: Denies: Hx Hepatitis, Hx Hiatal Hernia, Hx Ulcer Musculoskeletal Medical History: Denies Hx Arthritis Infectious Medical History: Denies: Hx Hepatitis Past Surgical History: Reports: Hx Cardiac Surgery - stents, Hx Hysterectomy. Denies: Hx Mastectomy, Hx Open Heart Surgery, Hx Pacemaker - Immunizations Hx Diphtheria, Pertussis, Tetanus Vaccination: Yes Hx Pneumococcal Vaccination: 04/05/16 Review of Systems - Review of Systems -: Yes All other systems reviewed and negative Physical Exam - Vital signs Vitals: Temp Pulse Resp BP Pulse Ox 97.7 F 77 18 94/42 L 99 09/09/19 13:16 09/09/19 13:16 09/09/19 13:16 09/09/19 13:16 09/09/19 13:16 Interpretation: Hypotensive - General General appearance: Alert In distress: Moderate - Respiratory Respiratory status: Respiratory distress, Tachypnea Breath sounds: Normal - Cardiovascular Rhythm: Regular - Abdominal Inspection: Normal Bowel sounds: Normal Tenderness: Nontender - Back Back: Normal - Extremities General upper extremity: Normal inspection, Normal color, Normal ROM General lower extremity: Normal inspection, Normal color, Normal ROM - Neurological Neuro grossly intact: Yes Lobo Coma Scale Eye Opening: Spontaneous Lobo Coma Scale Verbal: Confused [place] Coma Scale Motor: Obeys Commands [place] Coma Scale Total: 14 Motor strength normal: LUE, RUE, LLE, RLE - Psychological Associated symptoms: Normal affect, Normal mood - Skin Skin Temperature: Warm Skin Moisture: Dry Skin Color: Normal Course - Re-evaluation Re-evalutation: 09/09/19 14:17 Call placed to [facility], spoke with Dr. Blankenship, interventional cardiology. Please send EKG and withold tenecteplase due to risk factors and tombstone on EKG. Will try to coordinate for quick PCI. 14:57 Patient is a 78-year-old female who was brought in by her daughter for difficulty breathing that has gotten worse since this morning. Patient denies pain. EKG showing ST elevation in inferior and anterior leads. Patient is already on Brilinta. She is 64 kg and has a history of dementia. No recent surgeries or bleeding per daughter. Discussed with interventional cardiology, and given to him stoning on EKG, it is recommended that the patient not be given tenecteplase. It is recommended that she be transported as soon as possible for PCI. Patient was given fluids for a blood pressure of 90s over 40s concerning for cardiogenic shock. Air transport arrived for patient. Daughter who is the patient's healthcare proxy is agreeable to transport and wishes to proceed with intervention at this time. Patient was given aspirin 324 mg p.o. otherwise, tenecteplase, heparin, and Plavix were withheld as per cardiology. Patient did not receive a beta-vashti due to hypotension already. She is improved with fluids and medically stable at the time of air transport. Please see nursing notes for timeline. - Vital Signs Vital signs: Temp Pulse Resp BP Pulse Ox 98.2 F 80 20 125/58 L 98 09/09/19 14:51 09/09/19 14:51 09/09/19 14:51 09/09/19 14:51 09/09/19 14:51 - Laboratory Result Diagrams: 09/09/19 13:55 09/09/19 13:55 Laboratory results interpreted by me: 09/09/19 09/09/19 09/09/19 13:42 13:55 13:55 RDW 14.1 H VBG pH VBG pCO2 Sodium 136.7 L BUN 51 H Creatinine 1.52 H Est GFR ( Amer) 40 L Est GFR (MDRD) Non-Af 33 L Glucose 307 H POC Glucose 289 H Direct Bilirubin 0.5 H 09/09/19 14:40 RDW VBG pH 7.48 H VBG pCO2 29.5 L Sodium BUN Creatinine Est GFR ( Amer) Est GFR (MDRD) Non-Af Glucose POC Glucose Direct Bilirubin - Diagnostic Test Radiology reviewed: Image reviewed - NAD, Reports reviewed Critical Care Note - Critical Care Note Total time excluding time spent on procedures (mins): 40 - eval and management of STEMI, coordination with specialist, transfer coordination, counseling of patient and family Discharge - Discharge Clinical Impression: STEMI (ST elevation myocardial infarction) Qualifiers: Involved coronary artery: LAD coronary artery Qualified Code(s): I21.02 - ST elevation (STEMI) myocardial infarction involving left anterior descending coronary artery Condition: Critical Disposition: [facility] [place] Referrals: MUSA LEON MD [Primary Care Provider] - Follow up as needed
--- NOTE | 2019-09-09 14:40 | RADIOLOGY REPORT (SQ) ---
EXAM DESCRIPTION: CHEST SINGLE VIEW COMPLETED DATE/TIME: 09/09/2019 2:32 pm REASON FOR STUDY: cough congestion COMPARISON: 08/30/2019 EXAM PARAMETERS: NUMBER OF VIEWS: One view. TECHNIQUE: Single frontal radiographic view of the chest acquired. RADIATION DOSE: NA LIMITATIONS: None. FINDINGS: LUNGS AND PLEURA: No opacities, masses or pneumothorax. No pleural effusion. MEDIASTINUM AND HILAR STRUCTURES: No masses. Contour normal. HEART AND VASCULAR STRUCTURES: Heart normal in size. Normal vasculature. BONES: No acute findings. HARDWARE: Coronary stent. OTHER: No other significant finding. IMPRESSION: No focal airspace disease or other evidence of acute intrathoracic process. TECHNICAL DOCUMENTATION: JOB ID: [id number] 2010 [employer]- All Rights Reserved Reading location - IP/workstation name: [email or web address]
[2019-09-09 14:42] LABS: ALBUMIN 4.2 g/dL (3.5-5.0); ALKALINE PHOSPHATASE 94 U/L (38-126); ANION GAP 17 (5-19); ASPARTATE AMINO TRANSFERASE 33 U/L (14-36); BILIRUBIN,DIRECT 0.5 mg/dL (0.0-0.4); BILIRUBIN,TOTAL 0.9 mg/dL (0.2-1.3); BLOOD UREA NITROGEN 51 mg/dL (7-20); CARBON DIOXIDE 22 mmol/L (22-30); CHLORIDE 98 mmol/L (98-107); GLUCOSE 307 mg/dL (75-110); POTASSIUM 3.7 mmol/L (3.6-5.0); TOTAL PROTEIN 7.7 g/dL (6.3-8.2)
[2019-09-09] MEDS ORDERED: ASPIRIN 81 MG TABLET, CHEWABLE PO ONE (14:54)
[2019-09-09 14:59] LABS: VENOUS BLOOD BASE EXCESS -1.1 mmol/L; VENOUS BLOOD HCO3 21.5 mmol/L (20-32); VENOUS BLOOD PCO2 29.5 mmHg (35-63); VENOUS BLOOD PH 7.48 (7.30-7.42)
[2019-09-09 15:49] VITALS: BP 125/58
--- NOTE | 2019-09-09 18:12 | EKG REPORT ---
SEVERITY:- ABNORMAL ECG - SINUS OR ECTOPIC ATRIAL RHYTHM ST ELEVATION, PROBABLE INFERIOR INJURY ANTERIOR INFARCT, ACUTE LATERAL LEADS ARE ALSO INVOLVED : Confirmed by: Tarik Taveras MD 09-Sep-2019 18:11:41
== END 2019-09-09 14:52 | disposition short-term general hospital (02) ==
LOC: ER 13:08
DX: I21.02 ST elevation (STEMI) myocardial infarction involving left anterior descending coronary artery (principal); R06.02 Shortness of breath; R06.00 Dyspnea, unspecified; I25.2 Old myocardial infarction; I10 Essential (primary) hypertension; J44.9 Chronic obstructive pulmonary disease, unspecified; E11.9 Type 2 diabetes mellitus without complications
CPT/HCPCS: 93005; 99291; 36415; 82962; 85025; 80053; 84484; 82803; 71045; 93010; A9270